=== PATIENT | male | born 1945 | race Caucasian/White ===

== ENCOUNTER → 2021-01-06 | Outpatient (CLI) | payer MEDICARE ==
[~2021-01-06] MED LIST: ASCO500C PO; ASPI-630 PO; ATOR20TA58 PO; CARB1TAB22 PO; CYAN25008 PO; ESCITALOPRAM OX10 MG PO; FERR236T2 PO; FURO20TA3 PO; LATA2.5D2 OP; METF10007 PO; METO50TA4 PO; MULT-121 PO; PANT40TA77 PO; RIVA20TA2 PO; SACU1TAB4 PO
== END ==
LOC: LAB 13:02
PROVIDERS: ATTEND Ophthalmology
DX: Z01.812 Encounter for preprocedural laboratory examination (principal); Z20.822 Contact with and (suspected) exposure to COVID-19
CPT/HCPCS: U0003

== ENCOUNTER 2021-01-09 10:40 | Day surgery (SDC) | payer MEDICARE ==
[~2021-01-09] VITALS: Ht 182.9 cm; Wt 70.8 kg
[~2021-01-09 10:40] MED LIST changes: +CIPROFLOXACIN 0.3% OPHTH SOLUTION 5ML BOTTLE. OS ONE; +INSULIN LISPRO 100 UNIT/ML 3ML VIAL for OP,RR ONLY. SQ PRN; +IV RINGERS,LACTATED 1000ML 1,000 ML IV SCH; +LIDOCAINE 2% JELLY 6ML IN APPLICATOR. OS ONE; +PROPARACAINE 0.5% OPHTH SOLUTION 15ML BOTTLE. OS ONE
[2021-01-09] MEDS: PHENYLEPHRINE 10% OPHTH SOLUTION 5ML BOTTLE. OS SCH ×3 (11:11→11:21)
[2021-01-09] MEDS: CYCLOPENTOLATE 2% OPHTH SOLUTION 2ML BOTTLE. OS SCH ×3 (11:23→11:33)
[2021-01-09] MEDS ORDERED: LIDOCAINE 1%/PHENYLEPH 1.5% PF OPHTH 1 ML VIAL. ONE ×2 (11:42→12:25)
[2021-01-09] MEDS ORDERED: MIDAZOLAM HCL/PF 2 MG/2 ML VIAL. ONE (12:03)
[2021-01-09] MEDS ORDERED: LIDOCAINE 2% JELLY 6ML IN APPLICATOR. ONE (12:25)
[2021-01-09] MEDS ORDERED: CHONDROITIN-SOD-HYALURONATE 0.5 ML DISP.SYRIN. ONE (12:25)
[2021-01-09] MEDS ORDERED: TRYPAN BLUE 0.06% INTRAOCULAR 0.5 ML SYRINGE. ONE (12:25)
[2021-01-09] MEDS ORDERED: CHONDROIT-SOD-HYALURONATE KIT. ONE (12:25)
[2021-01-09] MEDS ORDERED: NEO/POLYMYX/DEXAMETH OPHTH OINTMENT 3.5GM TUBE. ONE (12:25)
[2021-01-09] MEDS ORDERED: BALANCED SALT IRRIG OPHTH SOLN 15 ML BOTTLE. ONE (12:40)
[2021-01-09 13:26] VITALS: BP 108/80
--- NOTE | 2021-01-09 14:14 | OP ---
DATE OF SURGERY: 01/09/2021 PREOPERATIVE DIAGNOSES: 1. 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 2. 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 SURGEON: Florentin Hinojosa MD ANESTHESIA: Topical with monitored anesthesia care. DESCRIPTION OF PROCEDURE: The left eye was prepped with Betadine in the usual sterile fashion and draped. A paracentesis was performed followed by instillation of preservative-free phenylephrine admixed with balanced salt solution. The left eye was then prepped with Betadine in the usual sterile fashion and draped. A paracentesis was performed followed by instillation of 1% preservative-free lidocaine and phenylephrine mixture. A temporal clear corneal incision was made and Viscoat was injected into the anterior chamber and the head of microscope was repositioned to visualize the anterior chamber angle. The gonioprism was used to visualize the angle and the goniotomy blade was used to excise a small segment in the inferior nasal quadrant. There was blood reflex noted. The head of microscope was repositioned and capsulorrhexis was performed followed by hydrodissection. The phacoemulsification handpiece was used to remove the nucleus in a modified stop and chop fashion. The I/A handpiece was used to remove the cortex. Viscoelastic was injected in the capsular bag and an Sánchez, model SN60WF with a power of 22.0 diopters was placed into the capsular bag. Balanced salt solution was used to hydrate the corneal wounds and the viscoelastic evacuated with the I/A handpiece. Once no leak was noted, Maxitrol was placed on the eye and the eye shielded and the patient was sent to the recovery room uneventfully. FLORENTIN HINOJOSA MD DR: DELORES/mj JOB#: [id number] / [id number]
== END 2021-01-09 13:53 | disposition home or self-care (01) ==
LOC: SURG 10:40 → EDUNIT# 12:30 → SURG 13:53
PROVIDERS: ATTEND Ophthalmology
DX: E11.36 Type 2 diabetes mellitus with diabetic cataract (principal); H40.20X0 Unspecified primary angle-closure glaucoma, stage unspecified; I10 Essential (primary) hypertension; E78.00 Pure hypercholesterolemia, unspecified; I48.91 Unspecified atrial fibrillation; K21.9 Gastro-esophageal reflux disease without esophagitis; Z87.891 Personal history of nicotine dependence; Z98.890 Other specified postprocedural states; Z79.899 Other long term (current) drug therapy; Z79.82 Long term (current) use of aspirin; Z79.84 Long term (current) use of oral hypoglycemic drugs
CPT/HCPCS: 66984; 82962; C1780; J0171; J0690; J1580; J2250; J3490

== ENCOUNTER 2021-01-16 08:47 | Day surgery (SDC) | payer MEDICARE ==
[~2021-01-16] VITALS: Ht 175.3 cm; Wt 70.8 kg
[~2021-01-16 08:47] MED LIST changes: +CIPROFLOXACIN 0.3% OPHTH SOLUTION 5ML BOTTLE. OD ONE; -CIPROFLOXACIN 0.3% OPHTH SOLUTION 5ML BOTTLE. OS ONE; -INSULIN LISPRO 100 UNIT/ML 3ML VIAL for OP,RR ONLY. SQ PRN; +LIDOCAINE 2% JELLY 6ML IN APPLICATOR. OD ONE; -LIDOCAINE 2% JELLY 6ML IN APPLICATOR. OS ONE; +PROPARACAINE 0.5% OPHTH SOLUTION 15ML BOTTLE. OD ONE; -PROPARACAINE 0.5% OPHTH SOLUTION 15ML BOTTLE. OS ONE
[2021-01-16] MEDS: CYCLOPENTOLATE 2% OPHTH SOLUTION 2ML BOTTLE. OD SCH ×3 (09:28→09:38)
[2021-01-16] MEDS: PHENYLEPHRINE 10% OPHTH SOLUTION 5ML BOTTLE. OD SCH ×3 (09:28→09:38)
[2021-01-16] MEDS ORDERED: CHONDROIT-SOD-HYALURONATE KIT. ONE (10:18)
[2021-01-16] MEDS ORDERED: CHONDROITIN-SOD-HYALURONATE 0.5 ML DISP.SYRIN. ONE (10:18)
[2021-01-16] MEDS ORDERED: LIDOCAINE 1%/PHENYLEPH 1.5% PF OPHTH 1 ML VIAL. ONE (10:18)
[2021-01-16] MEDS ORDERED: NEO/POLYMYX/DEXAMETH OPHTH OINTMENT 3.5GM TUBE. ONE (10:18)
[2021-01-16] MEDS ORDERED: BALANCED SALT IRRIG OPHTH SOLN 15 ML BOTTLE. ONE (10:18)
[2021-01-16 11:56] VITALS: BP 133/82
--- NOTE | 2021-01-16 12:15 | OP ---
DATE OF SURGERY: 01/16/2021 PREOPERATIVE DIAGNOSES: 1. 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 2. Cataract of the right eye. PROCEDURE: 1. [place] Dual blade goniotomy of the right eye. 2. Cataract extraction with posterior chamber intraocular lens implantation of the right eye. INDICATION: Painless progressive visual loss and visually significant cataract and progressively narrowing and occluding of the anterior chamber angle of the right eye. SURGEON: Florentin Hinojosa MD ANESTHESIA: Topical with monitored anesthesia care. DESCRIPTION OF PROCEDURE: The right eye was prepped with Betadine in the usual sterile fashion and draped. A paracentesis was performed followed by instillation of preservative-free phenylephrine admixed with lidocaine and balanced salt solution. A temporal clear corneal incision was made followed by instillation of Viscoat. The head of microscope were repositioned and the chamber had deepened sufficiently to visualize the trabecular meshwork. The Dual blade was then brought on to the field under gonioscopy guidance and approximately 3 o'clock hours in the nasal quadrants was excised. The head and microscope were repositioned and a capsulotomy was performed. Balanced salt solution was used to hydrate the nucleus and it was removed in a modified stop and chop fashion. The I/A handpiece was used to remove the cortex. Viscoelastic was then injected in the capsular bag. An [place] model SN60WF with a power of 21.5 diopters was placed into the capsular bag. Balanced salt solution was used to hydrate the corneal wounds and the viscoelastic evacuated with the I/A handpiece. Once no leak was noted, Maxitrol was placed on the eye and the eye shielded and the patient was sent to the recovery room uneventfully. The patient was administered 500 mg of Diamox postoperatively and given his postoperative instructions and asked to follow up in 4 days or call for any concerns. FLORENTIN HINOJOSA MD DR: DELORES/mj JOB#: [id number] / [id number]
== END 2021-01-16 12:15 | disposition home or self-care (01) ==
LOC: SURG 08:47 → EDUNIT# 11:30 → SURG 12:15
PROVIDERS: ATTEND Ophthalmology
DX: E11.36 Type 2 diabetes mellitus with diabetic cataract (principal); H40.20X0 Unspecified primary angle-closure glaucoma, stage unspecified; H25.11 Age-related nuclear cataract, right eye; I11.0 Hypertensive heart disease with heart failure; I50.9 Heart failure, unspecified; E78.00 Pure hypercholesterolemia, unspecified; I48.91 Unspecified atrial fibrillation; K21.9 Gastro-esophageal reflux disease without esophagitis; Z87.891 Personal history of nicotine dependence; Z79.82 Long term (current) use of aspirin; Z79.84 Long term (current) use of oral hypoglycemic drugs; Z79.899 Other long term (current) drug therapy; Z98.890 Other specified postprocedural states; Z72.89 Other problems related to lifestyle
CPT/HCPCS: 65820; 66984; 82962; J0171; J0690; J1580; J3490; V2632